=== PATIENT | female | born 1945 | race Caucasian/White ===

== ENCOUNTER → 2016-11-15 | Outpatient (CLI) | payer MEDICARE, OTHER ==
[~2016-11-15] MED LIST: ACET650T2 PO; ASPI-504 PO; ATN50T PO; BENA40TA5 PO; CALC1TAB13 PO; CEPH500T PO; FEXO60TA PO; FURO-125 PO; GLUC100016 PO; HYDR-3702 PO; LOVA40TA2 PO; METF850T2 PO; NEBI20TA2 PO; OMEP20CA6 PO; OMG1KC PO; PRX20T PO
--- NOTE | 2016-11-15 14:25 | Diagnostic Imaging Report ---
EXAMINATION: Magnetic resonance imaging of the left shoulder without contrast. DATE: November 15, 2016. COMPARISON: Left shoulder radiographs October 11, 2016. INDICATION: 71-year-old female, left shoulder pain. History of fall 5 weeks ago. TECHNIQUE: Magnetic Resonance Imaging sequences were performed of the shoulder without contrast. FINDINGS: ROTATOR CUFF, LIGAMENTS, TENDONS, AND MUSCLES: There is a full-thickness tear involving the majority of the width of the supraspinatus tendon with a 50% partial thickness articular-sided tendon tear at the supraspinatus-infraspinatus junction with retraction of articular-sided tendon fibers to the level of the superior humeral head by approximately 2.7 cm. The segments demonstrating full-thickness tearing also is retracted to the level of the superior humeral head. There is tendinopathy of the remaining portions of the infraspinatus tendon. The teres minor tendon is intact. There is subscapularis tendinopathy. There is no fatty atrophy of the rotator cuff musculature. LONG HEAD OF BICEPS: The biceps labral attachment and long head of the biceps tendon is intact. The long head of the biceps tendon is normally positioned within the bicipital groove. GLENOHUMERAL JOINT: The humeral head is currently not dislocated. There is a bony Bankart lesion involving the anterior inferior glenoid measuring approximately 15 mm in craniocaudal dimension and approximately 5 mm in depth. The posterior labrum is grossly intact. The superior labrum is grossly intact. There is a moderate-sized glenohumeral joint effusion. The articular cartilage is grossly intact. ACROMIOCLAVICULAR JOINT: The acromioclavicular joint is normally aligned. The coracoclavicular and coracoacromial ligaments are intact. There are mild acromioclavicular degenerative changes without large undersurface osteophyte. BONE: There is an acute impaction fracture of the superolateral humeral head consistent with an acute Hill-Sachs deformity. There is a mildly displaced fracture of the anterior inferior glenoid with adjacent marrow edema. BURSAE AND SOFT TISSUES: There is fluid in the subacromial subdeltoid bursa compatible with the full-thickness rotator cuff tendon tear, bursitis, and/or recent injection. IMPRESSION: 1. Evidence of recent prior anterior shoulder dislocation with acute Hill-Sachs deformity of the superolateral humeral head and mildly displaced fracture of the anterior inferior glenoid. The bony Bankart lesion measures approximately 15 mm in craniocaudal dimension and approximately 5 mm in depth. The humeral head is not currently dislocated relative to the glenoid. 2. Full-thickness tear involving the majority of the width of the supraspinatus tendon with 50% partial articular-sided tendon tear at the supraspinatus-infraspinatus junction. Tendon fibers are retracted to the level of the superior humeral head. No fatty muscle atrophy. 3. Mild acromioclavicular degenerative changes without large undersurface osteophyte. 4. Fluid in the subacromial subdeltoid bursa most likely relating to the full-thickness rotator cuff tendon tear although may also potentially relate to bursitis and/or recent injection. Dictated by: Dictated on workstation # [id number]
== END ==
LOC: RAD 12:27
PROVIDERS: ATTEND Family Medicine
DX: M25.512 Pain in left shoulder (principal); M75.102 Unspecified rotator cuff tear or rupture of left shoulder, not specified as traumatic
CPT/HCPCS: 73221

== ENCOUNTER → 2017-03-16 | Outpatient (CLI) | payer MEDICARE, OTHER ==
--- NOTE | 2017-03-16 12:05 | Diagnostic Imaging Report ---
PROCEDURE: US Gallbladder. TECHNIQUE: Multiple real-time grayscale images were obtained over the right upper quadrant in various projections. INDICATION: Right upper quadrant pain. FINDINGS: Mild increased echogenicity of the liver is noted. There is no hepatomegaly. There is a large gallstone which is mobile in the gallbladder. Gallbladder wall is mildly thickened just over 3 mm. There is no pericholecystic edema. The bile ducts are not dilated. Common duct measures 5 mm. The pancreas appears normal. Right kidney is normal measuring 10 x 4.6 x 4.7 cm. There is no ascites. Portal and hepatic vein are patent. IMPRESSION: 1. Large gallstone within the neck of the gallbladder with mild thickening of the gallbladder wall. 2. Mild fatty change of the liver without hepatomegaly. Dictated by: Dictated on workstation # [id number]
== END ==
LOC: RAD 10:38
PROVIDERS: ATTEND Family Medicine
DX: R10.11 Right upper quadrant pain (principal); K80.80 Other cholelithiasis without obstruction
CPT/HCPCS: 76705

== ENCOUNTER 2017-04-07 09:45 | Outpatient (RCR) | payer MEDICARE, OTHER ==
--- NOTE | 2017-01-17 09:40 | PT/OT/ST INITIAL EVALUATION ---
Department of Health and Human Services Form Approved [facility] Care Financing Administration OMB No. [id number] PLAN OF CARE/ASSESSMENT FOR OUTPATIENT REHABILITATION (Complete for Initial Claims Only) 1. PATIENT'S NAME Susan Cruz 2. ACC # [id number] 3. [place] [id number] 4. PROVIDER NO. [id number] 5. TYPE: PT 6. PRIOR HOSPITALIZATION None 7. PRIMARY DX Status post left shoulder arthroscopy with rotator cuff repair, subacromial decompression, distal clavicular resection, and biceps tenotomy. 8. SECONDARY DX Limited range of motion, strength and stability at left shoulder. 9. ONSET DATE 12/19/2016 10. REFERRAL DATE 01/16/2017 11. SOC. DATE 01/16/2017 12. TIME OF EVAL 13:[address] Rodger Prado 13. CHARGES/UNITS NA 14. G CODES NA 15. PRIOR LEVEL OF FUNCTION; PERTINENT HISTORY (Prior therapy results, reason for referral.) S: Reason for referral: The patient was referred to physical therapy by Dr. Prado in [place] with the diagnosis of status post left shoulder rotator cuff repair of a large tear. Orders were to follow unstable protocol. The patient reports that on 10/11/2016, she had fallen going up the stairs from her garage into her home and landed on her left shoulder. The patient notes that she had limited motion and increased pain at the shoulder after the incident. The patient is right handed. She notes that she is still sleeping in a recliner. The patient had been wearing a mobilizer and sling routinely. Occupational and social health history: The patient is retired. She enjoys reading and sewing. Past medical history: Includes arthritis, hypertension, and knee scope. Current medications: Tennille as needed. Personal health rating: The patient rates overall health as good. Patient's Goal: The patient's overall goal for therapy is to be able to move her left arm without pain and to gain strength. 16. INITIAL ASSESSMENT/SAFETY PRECAUTIONS/MEDICAL COMPLICATIONS (Level of function at start of care. Be specific, use objective measures, list problems.) O: APPEARANCE AND OBSERVATION: The patient is a 71-year-old female. She demonstrates slight forward head posture, mildly rounded shoulders. Appearance of left shoulder demonstrates 6 well healed incision portals. PALPATION: Slight tenderness to palpation at left anterior shoulder. RANGE OF MOTION/FLEXIBILITY: Actively right shoulder elevation 168 degrees, abduction 170 degrees. Passive range of motion right shoulder flexion 171 degrees, abduction 171 degrees, external rotation 95 degrees, and internal rotation 35 degrees. Left shoulder passive range of motion flexion to 115 degrees. Abduction was only to pain free 60 degrees. External rotation to neutral. STRENGTH: Right shoulder strength flexion 5/5 manual muscle test, abduction 4+/5 manual muscle test, external rotation 4/5 manual muscle test, and internal rotation 5/5 manual muscle test. Elbow flexion 5/5 manual muscle test. Left shoulder strength was not tested at this time. TODAY'S TREATMENT: Included initial evaluation followed by gentle manual stretching to the patient's left shoulder. The patient was in then instructed on gentle active assist range of motion and scapular mobility at her left shoulder. The patient was also instructed on Codman pendulum exercises. 17. INITIAL POC: (Specify procedures, modalities, short and alf goals) A: The patient is status post left shoulder massive rotator cuff repair. PROGNOSIS: The patient is a good candidate for physical therapy to regain range of motion, strength and stability. GOALS: 1. The patient to be compliant with home exercise program in 2 weeks. 2. The patient to demonstrate 80% passive range of motion in all directions at left shoulder in 6 weeks. 3. The patient to actively elevate left shoulder to 90 degrees with good mechanics in 6 weeks. 4. The patient to be able to perform normal daily activities with fair muscle strength at left shoulder in 8 weeks. 5. The patient to report that she is able to perform daily activities safely without pain using her left arm in 12 weeks. P: The patient will be seen 2 times a week over the next 6 weeks. Plan on progressing the patient with passive range of motion, flexibility, stabilization, and light strengthening activities when appropriate according to protocol. Modalities and manual therapy will be used as necessary to decrease pain and inflammation. 18. FREQUENCY 19. DURATION 20. FUNCTIONAL LEVEL (End of claim period) 21. PHYSICIAN SIGNATURE ? ON FILE OR ENTER HERE: 22. DATE: I certify the need for these services furnished under this plan of care and if for partial hospitalization. 23. CERTIFICATION FROM THROUGH FORM [id number]
== END 2017-04-10 10:32 | disposition home or self-care (01) ==
LOC: PT 09:45
PROVIDERS: ATTEND Orthopaedic Surgery
DX: Z98.890 Other specified postprocedural states (principal); M25.612 Stiffness of left shoulder, not elsewhere classified
CPT/HCPCS: 97016; 97110; 97140; 97161; G8984; G8985